=== PATIENT | male | born 2005 | race African-American/Black ===

== ENCOUNTER 2023-12-21 07:52 | Inpatient (IN) | payer OTHER ==
[2023-12-21 08:03] VITALS: BMI 24.4
[2023-12-21] MEDS ORDERED: ACETAMINOPHEN INJECTION 100 ML IVPB ONE (10:29)
[2023-12-21 10:30] LABS: HEMATOCRIT 46.3 % (35.4-49); HEMOGLOBIN 16.3 GM/dL (11.7-16.9); MCH 30.8 pg (25.7-33.7); MCHC 35.1 g/dl (32.0-35.9); MEAN CELL VOLUME 87.8 fl (80-96); PLATELET COUNT 180 10^3/uL (134-434); RBC 5.28 M/mm3 (4.00-5.60)
[2023-12-21 10:38] LABS: INR 1.2 (0.83-1.09); PROTHROMBIN TIME (PATIENT) 13.5 SEC (9.7-13.0); VENOUS BASE EXCESS -3.9 mmol/L (-2-2); VENOUS O2 SATURATION 43.3 % (70-80); VENOUS PCO2 43.8 mmHg (38-52); VENOUS PH 7.322 (7.310-7.410)
[2023-12-21 10:40] LABS: ACTIVATED PTT 34.3 SECONDS (25.2-36.5)
[2023-12-21] MEDS: ACETAMINOPHEN 1000 MG/100 ML BAG IVPB ONE (10:40)
[2023-12-21] MEDS: VANCOMYCIN PREMIX 1.75 GM 1,750 MG/350 ML PIGGYBACK IVPB ONE (10:41)
[2023-12-21 10:49] LABS: POTASSIUM 3.3 mmol/L (3.5-5.1)
[2023-12-21 10:53] LABS: BLOOD UREA NITROGEN 8.8 mg/dL (7-18); CALCIUM 9.2 mg/dL (8.5-10.1)
[2023-12-21 10:54] LABS: ALBUMIN 4.3 g/dl (3.4-5.0)
[2023-12-21 10:57] LABS: CREATININE 1.2 mg/dL (0.55-1.3)
[2023-12-21 10:58] LABS: TOT PROT 7.6 g/dl (6.4-8.2)
[2023-12-21 11:24] LABS: ANISOCYTOSIS 0; HELMET CELLS 0; HOWELL-JOLLY BODIES 0; MACROCYTOSIS 0; OVALOCYTE 0; ROULEAU 0; SICKELED CELLS 0; TARGET CELLS 0; TEAR DROP CELLS 0; TOXIC GRANULATION 0
[2023-12-21 11:31] LABS: ERYTHROCYTE SEDIMENTATION RATE 2 mm/hr (0-10)
[2023-12-21] MEDS ORDERED: POTASSIUM CHLORIDE ORAL LIQUID 20 MEQ/15 ML ONE (11:51)
[2023-12-21] MEDS: SODIUM CHLORIDE 0.9% 500 ML INFUS.BAG IV ONE ×2 (12:20→15:00)
[2023-12-21] MEDS: POTASSIUM CHLORIDE ORAL LIQUID 20 MEQ/15 ML PO ONE (12:20)
[2023-12-21] MEDS ORDERED: KETOROLAC TROMETHAMINE 15 MG/ML VIAL ONE (14:07)
[2023-12-21] MEDS: KETOROLAC TROMETHAMINE 15 MG/ML VIAL IM ONE (14:11)
[2023-12-21] MEDS ORDERED: ACETAMINOPHEN 500 MG TABLET (FP) PO PRN (16:36)
[2023-12-21] MEDS ORDERED: VANCOMYCIN/WATER 1250 MG 1,250 MG/250 ML BAG IVPB ONE (21:49)
[2023-12-21] MEDS ORDERED: CEFAZOLIN SODIUM 2 GM in DEXTROSE 5%-WATER 100 ML IVPB SCH (22:00)
[2023-12-21] MEDS: VANCOMYCIN/WATER 1250 MG 1,250 MG/250 ML BAG IVPB SCH (23:25)
[2023-12-22 09:16] LABS: BASO % 0.2 % (0-2.0); EOS % 2.9 % (0-4.5); HEMATOCRIT 43.3 % (35.4-49); HEMOGLOBIN 15.5 GM/dL (11.7-16.9); LYMPH % 7.6 % (8-40); MCH 31.8 pg (25.7-33.7); MCHC 35.8 g/dl (32.0-35.9); MEAN CELL VOLUME 88.8 fl (80-96); MEAN PLT VOLUME 8.6 fl (7.5-11.1); NEUT % 81.3 % (42.8-82.8); PLATELET COUNT 151 10^3/uL (134-434); RBC 4.88 M/mm3 (4.00-5.60); RDW 12.9 % (11.9-15.9); WHITE BLOOD COUNT 10.4 K/mm3 (4.0-10.0)
[2023-12-22 10:15] LABS: POTASSIUM 3.5 mmol/L (3.5-5.1)
[2023-12-22 10:23] LABS: CALCIUM 8.6 mg/dL (8.5-10.1)
[2023-12-22 10:27] LABS: CREATININE 1.1 mg/dL (0.55-1.3)
[2023-12-22] MEDS: diphenhydrAMINE HCL 25 MG CAPSULE (FP) PO ONE (13:39)
[2023-12-22 16:27] VITALS: RESP 18
[2023-12-23] MEDS ORDERED: diphenhydrAMINE HCL 25 MG CAPSULE (FP) PO PRN (08:52)
[2023-12-23 09:34] LABS: BASO % 0.3 % (0-2.0); EOS % 3.7 % (0-4.5); HEMATOCRIT 43.2 % (35.4-49); HEMOGLOBIN 14.8 GM/dL (11.7-16.9); LYMPH % 12.6 % (8-40); MCH 30.3 pg (25.7-33.7); MCHC 34.2 g/dl (32.0-35.9); MEAN CELL VOLUME 88.5 fl (80-96); MEAN PLT VOLUME 8.5 fl (7.5-11.1); MONO % 7.4 % (3.8-10.2); PLATELET COUNT 181 10^3/uL (134-434); RBC 4.88 M/mm3 (4.00-5.60); RDW 13.1 % (11.9-15.9); WHITE BLOOD COUNT 5.3 K/mm3 (4.0-10.0)
[2023-12-23 09:55] LABS: POTASSIUM 3.7 mmol/L (3.5-5.1)
[2023-12-23 09:58] LABS: BLOOD UREA NITROGEN 8.4 mg/dL (7-18); CALCIUM 8.9 mg/dL (8.5-10.1)
[2023-12-23 10:00] LABS: CREATININE 1.1 mg/dL (0.55-1.3)
[2023-12-24 03:50] VITALS: TEMP 98.7
[2023-12-24 08:52] LABS: HEMOGLOBIN 15.8 GM/dL (11.7-16.9); MCH 30.9 pg (25.7-33.7); MCHC 35.2 g/dl (32.0-35.9); MEAN CELL VOLUME 87.8 fl (80-96); MEAN PLT VOLUME 8.2 fl (7.5-11.1); PLATELET COUNT 230 10^3/uL (134-434); RBC 5.12 M/mm3 (4.00-5.60); RDW 13.1 % (11.9-15.9); WHITE BLOOD COUNT 5.1 K/mm3 (4.0-10.0)
[2023-12-24 09:03] VITALS: BP 147/70; PULSE 86
[2023-12-24 09:06] LABS: POTASSIUM 3.8 mmol/L (3.5-5.1)
[2023-12-24 09:08] LABS: BLOOD UREA NITROGEN 5.2 mg/dL (7-18)
[2023-12-24 09:11] LABS: CREATININE 0.9 mg/dL (0.55-1.3)
== END 2023-12-24 15:03 | disposition home or self-care (01) | DRG 603 ==
LOC: JER 07:52 → JERBED 15:00 → J6S 22:31
PROVIDERS: ADMIT Internal Medicine; ATTEND Student in an Organized Health Care Education/Training Program
DX: L03.113 Cellulitis of right upper limb (principal); R00.0 Tachycardia, unspecified; R50.9 Fever, unspecified; D72.829 Elevated white blood cell count, unspecified; T78.49XA Other allergy, initial encounter; T50.905A Adverse effect of unspecified drugs, medicaments and biological substances, initial encounter; X58.XXXA Exposure to other specified factors, initial encounter; Y92.9 Unspecified place or not applicable
CPT/HCPCS: 36415; 73070-TC-RT-FY; 73090-TC-RT-FY; 73201-TC-RT; 80048; 80053; 82803; 83605; 85025; 85027; 85610; 85651; 85730; 86140; 86850; 86900; 86901; 87040; 93005; 93010; 93971; 99285-25; G0480; J0131; J3370; Q9967

== ENCOUNTER 2025-03-29 18:08 | Emergency (ER) | payer OTHER ==
[2025-03-29 18:20] VITALS: BP 110/56; PULSE 67; RESP 16; TEMP 98.7; BMI 25.0
[2025-03-29] MEDS ORDERED: KETOROLAC TROMETHAMINE 30 MG/1 ML VIAL ONE (19:26)
[2025-03-29] MEDS: KETOROLAC TROMETHAMINE 30 MG/1 ML VIAL IM ONE (19:35)
== END 2025-03-29 19:35 | disposition home or self-care (01) ==
LOC: JERFT 18:08
PROC: 3E0233Z Introduction of Anti-inflammatory into Muscle, Percutaneous Approach (ICD-10-PCS; principal; 2025-03-29)
DX: M54.6 Pain in thoracic spine (principal); M54.2 Cervicalgia; M25.512 Pain in left shoulder; V49.40XA Driver injured in collision with unspecified motor vehicles in traffic accident, initial encounter; Y92.410 Unspecified street and highway as the place of occurrence of the external cause
CPT/HCPCS: 99284-25